=== PATIENT | male | born 1960 | race Hispanic/Latino ===

== ENCOUNTER 2021-08-30 06:46 | Inpatient (IN) | payer MEDICAID, OTHER ==
[2021-08-30] MEDS ORDERED: Nitroglycerin 0.4 MG TAB 1 EACH ONE (07:05)
[2021-08-30 07:08] LABS: #Eosinphils 0.1 thou/uL (0.0-0.7); #Monocytes 0.6 thou/uL (0.11-0.59); #Neutrophils 4.9 thou/uL (1.40-6.50); %Basophils 0.3 % (0.0-1.0); %Lymphocytes 26.9 % (21.0-51.0); %Monocytes 7.6 % (0.0-10.0); %Neutrophils 64.3 % (42.0-75.0); Hemoglobin 15.8 g/dL (14.0-18.0); Mean Corpuscular HGB CONC 34.4 g/dL (32.0-36.0); Mean Corpuscular Hemoglobin 31.1 pg (27.0-31.0); Mean Corpuscular Volume 90.5 fL (78.0-98.0); Mean Platelet Volume 6.6 fL (7.4-10.4); Platelet Count 271 thou/uL (130-400); RBC Distribution Width 11.8 % (11.5-14.5); Red Blood Cell (RBC) Count 5.08 mill/uL (4.70-6.10); White Blood Cell (WBC) Count 7.6 thou/uL (4.8-10.8)
[2021-08-30 07:31] LABS: ALT (SGPT) 28 U/L (8-55); AST (SGOT) 22 U/L (5-34); Albumin 4.3 g/dL (3.4-4.8); Alkaline Phosphatase 98 U/L (40-110); Anion Gap 13 mmol/L (10-20); BUN (Urea Nitrogen) 13 mg/dL (8.4-25.7); Bilirubin, Total 0.2 mg/dL (0.2-1.2); Calc. Creatinine Clearance 0 mL/min (70-130); Carbon Dioxide 29 mmol/L (23-31); Chloride 102 mmol/L (98-107); Globulin 4.1 g/dL (2.4-3.5); Glucose 166 mg/dL (80-115); Potassium 4.1 mmol/L (3.5-5.1); Protein, Total 8.4 g/dL (5.8-8.1); Sodium 140 mmol/L (136-145)
[2021-08-30] MEDS ORDERED: Nitroglycerin 2% Ointment 1 INCH/1 GM Packet ONE (07:35)
[2021-08-30 07:55] LABS: CKMB 3.1 ng/mL (0-6.6)
[2021-08-30] MEDS ORDERED: Enoxaparin Sodium 80 MG/0.8 ML SYRINGE ONE (08:15)
[2021-08-30] MEDS ORDERED: Nitroglycerin 0.4 MG TAB (25 Tab Bottle) SL PRN (08:58)
[2021-08-30] MEDS ORDERED: Acetaminophen 325 MG TAB PO PRN (09:02)
[2021-08-30] MEDS ORDERED: Ondansetron ODT 4 MG TAB PO PRN (09:02)
[2021-08-30] MEDS ORDERED: Ondansetron PF 4 MG/2 ML Vial IVP PRN (09:02)
[2021-08-30] MEDS ORDERED: Calcium Carbonate 500 MG ChewTAB PO PRN (09:02)
[2021-08-30] MEDS ORDERED: Morphine 4 MG/ML VIAL SLOW IVP PRN (09:27)
[2021-08-30 09:38] LABS: Magnesium 2.1 mg/dL (1.6-2.6)
[2021-08-30 10:24] LABS: Troponin I 1.611 ng/mL (< 0.028)
[2021-08-30] MEDS ORDERED: Communication Order-Pharmacy FS ONE (10:33)
[2021-08-30] MEDS ORDERED: Enoxaparin Sodium 80 MG/0.8 ML SYRINGE SC SCH (11:15)
[2021-08-30 12:52] LABS: Cardiac Risk 7.3 (Less than 4.5)
[2021-08-30] MEDS ORDERED: Clopidogrel Bisulfate 300 MG TAB PO SCH (13:15)
[2021-08-30] MEDS: Nitroglycerin 2% Ointment 1 INCH/1 GM Packet TOP SCH ×2 (15:55→21:53)
[2021-08-30 19:38] VITALS: BMI 27.8
[2021-08-30] MEDS ORDERED: Aspirin 325 mg Enteric Coated Tablet PO SCH (21:00)
[2021-08-30] MEDS: Aspirin 325 mg Enteric Coated Tablet PO SCH (21:52)
[2021-08-30] MEDS: Enoxaparin Sodium 80 MG/0.8 ML SYRINGE SC SCH (21:53)
[2021-08-30] MEDS: Senokot S 8.6-50 MG TAB PO SCH (21:53)
[2021-08-30] MEDS: Atorvastatin Calcium 40 MG TAB PO SCH (21:53)
[2021-08-30 22:48] LABS: SARS-CoV-2 PCR by NAA Not Detected (NotDetected)
[2021-08-31 04:45] LABS: #Eosinphils 0.1 thou/uL (0.0-0.7); #Lymphocytes 1.6 thou/uL (1.20-3.40); #Monocytes 0.5 thou/uL (0.11-0.59); #Neutrophils 3.5 thou/uL (1.40-6.50); %Basophils 0.2 % (0.0-1.0); %Eosinophils 1.9 % (0.0-10.0); %Lymphocytes 28.4 % (21.0-51.0); %Monocytes 8.4 % (0.0-10.0); %Neutrophils 61.1 % (42.0-75.0); Hemoglobin 13.4 g/dL (14.0-18.0); Mean Corpuscular HGB CONC 34.3 g/dL (32.0-36.0); Mean Corpuscular Hemoglobin 31.6 pg (27.0-31.0); Mean Corpuscular Volume 92.1 fL (78.0-98.0); Mean Platelet Volume 6.6 fL (7.4-10.4); Platelet Count 222 thou/uL (130-400); RBC Distribution Width 11.9 % (11.5-14.5); Red Blood Cell (RBC) Count 4.24 mill/uL (4.70-6.10); White Blood Cell (WBC) Count 5.8 thou/uL (4.8-10.8)
[2021-08-31 04:51] LABS: Hemoglobin A1c 5.7 % (4.0-6.0)
[2021-08-31 05:07] LABS: Anion Gap 9 mmol/L (10-20); BUN (Urea Nitrogen) 11 mg/dL (8.4-25.7); Calc. Creatinine Clearance 85 mL/min (70-130); Calcium 9.1 mg/dL (7.8-10.44); Carbon Dioxide 28 mmol/L (23-31); Chloride 104 mmol/L (98-107); Glucose 99 mg/dL (80-115); Potassium 4.2 mmol/L (3.5-5.1); Sodium 137 mmol/L (136-145)
[2021-08-31] MEDS: Nitroglycerin 2% Ointment 1 INCH/1 GM Packet TOP SCH (05:57)
[2021-08-31 08:07] LABS: Troponin I 4.024 ng/mL (< 0.028)
[2021-08-31] MEDS: Clopidogrel Bisulfate 75 MG TAB PO SCH (08:48)
[2021-08-31] MEDS: Senokot S 8.6-50 MG TAB PO SCH ×2 (08:48→20:44)
[2021-08-31] MEDS: Enoxaparin Sodium 80 MG/0.8 ML SYRINGE SC SCH ×2 (08:48→20:45)
[2021-08-31] MEDS: Atorvastatin Calcium 40 MG TAB PO SCH (20:44)
[2021-08-31] MEDS: Aspirin 325 mg Enteric Coated Tablet PO SCH (21:08)
[2021-09-01 05:44] LABS: #Eosinphils 0.1 thou/uL (0.0-0.7); #Lymphocytes 2.2 thou/uL (1.20-3.40); #Monocytes 0.6 thou/uL (0.11-0.59); #Neutrophils 3.5 thou/uL (1.40-6.50); %Basophils 0.3 % (0.0-1.0); %Eosinophils 1.7 % (0.0-10.0); %Lymphocytes 34.5 % (21.0-51.0); %Monocytes 8.6 % (0.0-10.0); %Neutrophils 54.9 % (42.0-75.0); Hemoglobin 13.6 g/dL (14.0-18.0); Mean Corpuscular HGB CONC 34.1 g/dL (32.0-36.0); Platelet Count 224 thou/uL (130-400); RBC Distribution Width 11.7 % (11.5-14.5); Red Blood Cell (RBC) Count 4.39 mill/uL (4.70-6.10); White Blood Cell (WBC) Count 6.4 thou/uL (4.8-10.8)
[2021-09-01 05:56] LABS: Anion Gap 9 mmol/L (10-20); BUN (Urea Nitrogen) 14 mg/dL (8.4-25.7); Calc. Creatinine Clearance 82 mL/min (70-130); Calcium 9.1 mg/dL (7.8-10.44); Carbon Dioxide 28 mmol/L (23-31); Chloride 103 mmol/L (98-107); Glucose 99 mg/dL (80-115); Potassium 3.8 mmol/L (3.5-5.1); Sodium 136 mmol/L (136-145)
[2021-09-01] MEDS: Clopidogrel Bisulfate 75 MG TAB PO SCH (09:14)
[2021-09-01] MEDS: Senokot S 8.6-50 MG TAB PO SCH ×2 (09:14→20:16)
[2021-09-01] MEDS ORDERED: Regadenoson 0.4 MG/5 ML SYRINGE ONE (10:32)
[2021-09-01] MEDS ORDERED: Potassium Chloride 20 MEQ TAB PO SCH (12:00)
[2021-09-01] MEDS: Atorvastatin Calcium 40 MG TAB PO SCH (20:16)
[2021-09-01] MEDS: Lisinopril 10 MG TAB PO SCH (20:16)
[2021-09-01] MEDS ORDERED: Aspirin 81 mg Enteric Coated Tablet PO SCH (21:00)
[2021-09-02] MEDS: Senokot S 8.6-50 MG TAB PO SCH (08:18)
[2021-09-02] MEDS: Clopidogrel Bisulfate 75 MG TAB PO SCH (08:18)
[2021-09-02] MEDS: Lisinopril 10 MG TAB PO SCH (08:19)
[2021-09-02] MEDS ORDERED: Lisinopril 20 MG TAB PO SCH (09:00)
[2021-09-02 11:34] VITALS: BP 130/64; TEMP 98.3
[2021-09-02] MEDS ORDERED: Atorvastatin Calcium 40 MG TAB PO SCH (21:00)
== END 2021-09-02 12:00 | disposition home or self-care (01) | DRG 282 ==
LOC: ERS 06:46 → 2NO 08:12
PROVIDERS: ADMIT Internal Medicine; ATTEND Internal Medicine
DX: I21.4 Non-ST elevation (NSTEMI) myocardial infarction (principal); I25.10 Atherosclerotic heart disease of native coronary artery without angina pectoris; E78.5 Hyperlipidemia, unspecified; N18.2 Chronic kidney disease, stage 2 (mild); Z20.822 Contact with and (suspected) exposure to COVID-19; R00.1 Bradycardia, unspecified; F17.210 Nicotine dependence, cigarettes, uncomplicated; Z95.1 Presence of aortocoronary bypass graft; Z79.82 Long term (current) use of aspirin; I25.2 Old myocardial infarction; Z82.49 Family history of ischemic heart disease and other diseases of the circulatory system; Z71.6 Tobacco abuse counseling
CPT/HCPCS: 36415; 71045; 78452; 80048; 80053; 80061; 82553; 83036; 83690; 83735; 83880; 84484; 85025; 93005; 93010; 93017; 93306; 93798; 96372; A9500; J1650; J2785; U0003; U0005

== ENCOUNTER 2022-03-01 10:55 | Observation (INO) | payer OTHER ==
[2022-03-01] MEDS ORDERED: Aspirin Chewable 81 MG TAB ONE (11:31)
[2022-03-01] MEDS ORDERED: Nitroglycerin 0.4 MG TAB 1 EACH ONE (11:31)
[2022-03-01 11:56] LABS: #Lymphocytes 1.6 thou/uL (1.20-3.40); #Monocytes 0.5 thou/uL (0.11-0.59); #Neutrophils 3.7 thou/uL (1.40-6.50); %Basophils 0.2 % (0.0-1.0); %Lymphocytes 27.5 % (21.0-51.0); %Monocytes 8.8 % (0.0-10.0); %Neutrophils 63.5 % (42.0-75.0); Hemoglobin 16.4 g/dL (14.0-18.0); Mean Corpuscular HGB CONC 31.8 g/dL (32.0-36.0); Mean Corpuscular Hemoglobin 29.4 pg (27.0-31.0); Mean Corpuscular Volume 92.4 fL (78.0-98.0); Platelet Count 192 thou/uL (130-400); RBC Distribution Width 12.3 % (11.5-14.5); Red Blood Cell (RBC) Count 5.56 mill/uL (4.70-6.10); White Blood Cell (WBC) Count 5.9 thou/uL (4.8-10.8)
[2022-03-01 12:15] LABS: ALT (SGPT) 60 U/L (8-55); AST (SGOT) 42 U/L (5-34); Albumin 3.9 g/dL (3.4-4.8); Alkaline Phosphatase 102 U/L (40-110); Anion Gap 14 mmol/L (10-20); BUN (Urea Nitrogen) 15 mg/dL (8.4-25.7); Bilirubin, Total 0.3 mg/dL (0.2-1.2); Calc. Creatinine Clearance 0 mL/min (70-130); Calcium 8.9 mg/dL (7.8-10.44); Carbon Dioxide 25 mmol/L (23-31); Chloride 99 mmol/L (98-107); Globulin 3.9 g/dL (2.4-3.5); Glucose 165 mg/dL (80-115); Lipase 42 U/L (8-78); Potassium 3.9 mmol/L (3.5-5.1); Protein, Total 7.8 g/dL (5.8-8.1); Sodium 134 mmol/L (136-145)
[2022-03-01 12:35] LABS: CKMB 0.5 ng/mL (0-6.6)
[2022-03-01] MEDS ORDERED: Ondansetron ODT 4 MG TAB PO PRN (14:23)
[2022-03-01] MEDS ORDERED: Acetaminophen 325 MG TAB PO PRN (14:23)
[2022-03-01 14:24] LABS: SARS-CoV-2 NAA Rapid Test DETECTED (NotDetected)
[2022-03-01] MEDS ORDERED: Benzonatate 100 MG CAP PO PRN (14:30)
[2022-03-01 15:08] LABS: Cholesterol 173 mg/dl (< 200 Desired); HDL Cholesterol 29 mg/dL (>60 Neg Risk); LDL Cholesterol, Calculated 122 mg/dL; Magnesium 1.8 mg/dL (1.6-2.6); Triglycerides 112 mg/dL (Less than 150)
[2022-03-01 15:12] VITALS: BMI 25.7
[2022-03-01] MEDS ORDERED: NIRMATRELVIR 150 MG/RITONAVIR 100 MG TABLET PO SCH (18:00)
[2022-03-01] MEDS ORDERED: Atorvastatin Calcium 20 MG TAB PO SCH (21:00)
[2022-03-02 05:06] LABS: #Lymphocytes 2.3 thou/uL (1.20-3.40); #Monocytes 0.4 thou/uL (0.11-0.59); #Neutrophils 2.3 thou/uL (1.40-6.50); %Basophils 0.2 % (0.0-1.0); %Eosinophils 0.5 % (0.0-10.0); %Lymphocytes 46.2 % (21.0-51.0); %Neutrophils 45.1 % (42.0-75.0); Hemoglobin 16.4 g/dL (14.0-18.0); Mean Corpuscular HGB CONC 32.4 g/dL (32.0-36.0); Mean Corpuscular Hemoglobin 30.2 pg (27.0-31.0); Mean Corpuscular Volume 93.1 fL (78.0-98.0); Mean Platelet Volume 7.4 fL (7.4-10.4); Platelet Count 189 thou/uL (130-400); RBC Distribution Width 12.4 % (11.5-14.5); Red Blood Cell (RBC) Count 5.43 mill/uL (4.70-6.10); White Blood Cell (WBC) Count 5.1 thou/uL (4.8-10.8)
[2022-03-02 05:23] LABS: ALT (SGPT) 54 U/L (8-55); AST (SGOT) 38 U/L (5-34); Albumin 3.7 g/dL (3.4-4.8); Alkaline Phosphatase 91 U/L (40-110); Anion Gap 14 mmol/L (10-20); BUN (Urea Nitrogen) 17 mg/dL (8.4-25.7); Bilirubin, Total 0.4 mg/dL (0.2-1.2); Calc. Creatinine Clearance 76 mL/min (70-130); Calcium 9.2 mg/dL (7.8-10.44); Carbon Dioxide 22 mmol/L (23-31); Chloride 105 mmol/L (98-107); Globulin 3.8 g/dL (2.4-3.5); Glucose 106 mg/dL (80-115); Potassium 4.3 mmol/L (3.5-5.1); Protein, Total 7.5 g/dL (5.8-8.1); Sodium 137 mmol/L (136-145)
[2022-03-02] MEDS ORDERED: Lisinopril 20 MG TAB PO SCH (09:00)
[2022-03-02] MEDS ORDERED: Zinc Sulfate 220 MG CAP PO SCH (09:00)
[2022-03-02] MEDS ORDERED: Cholecalciferol (Vitamin D3) 400 UNITS TAB PO SCH (09:00)
[2022-03-02] MEDS ORDERED: Aspirin Chewable 81 MG TAB PO SCH (09:00)
[2022-03-02] MEDS ORDERED: Ascorbic Acid 500 mg Chewable Tablet PO SCH (09:00)
[2022-03-02] MEDS ORDERED: Clopidogrel Bisulfate 75 MG TAB PO SCH (09:00)
[2022-03-02] MEDS ORDERED: Enoxaparin Sodium 40 MG/0.4 ML SYRINGE SC SCH (09:00)
[2022-03-02] MEDS ORDERED: NIRMATRELVIR 150 MG/RITONAVIR 100 MG TABLET PO SCH (09:00)
[2022-03-02 11:55] VITALS: BP 122/61; TEMP 97.8
[2022-03-07] MEDS ORDERED: Atorvastatin Calcium 40 MG TAB PO SCH (21:00)
== END 2022-03-02 13:12 | disposition home or self-care (01) ==
LOC: ERS 10:55 → 2SW 13:34
PROVIDERS: ADMIT Internal Medicine; ATTEND Internal Medicine
DX: U07.1 COVID-19 (principal); I21.A1 Myocardial infarction type 2; I25.10 Atherosclerotic heart disease of native coronary artery without angina pectoris; E78.5 Hyperlipidemia, unspecified; F17.290 Nicotine dependence, other tobacco product, uncomplicated; Z79.82 Long term (current) use of aspirin; Z95.1 Presence of aortocoronary bypass graft; Z79.02 Long term (current) use of antithrombotics/antiplatelets; Z79.899 Other long term (current) drug therapy
CPT/HCPCS: 36415; 71045; 80053; 80061; 82553; 83690; 83735; 83880; 84443; 84484; 85025; 85379; 86140; 93005; 94760; G0378; J1650